=== PATIENT | male | born 1945 | race Caucasian/White ===

== ENCOUNTER → 2018-10-29 | Outpatient (CLI) | payer OTHER ==
[~2018-10-29] VITALS: Ht 175.3 cm; Wt 100.7 kg
[~2018-10-29] MED LIST: IBUPROFEN 800800 M1 PO
--- NOTE | ~2018-10-29 | HPC ---
[facility] [place] [address] PAIN MANAGEMENT CONSULTATION Name: OG REN Room #: REG AKASH Paige.#: [id number] Admission: 10/29/18 Attend Phys: Arvind De León MD Discharge: Date of : 49 Report #: [id number] THIS REPORT FOR: //name// CC: Giovani De León DATE OF SERVICE: 10/29/2018 CHIEF COMPLAINT: Low back pain with radicular symptoms into the right leg. The patient is a very pleasant 73-year-old gentleman I have seen today on the first visit at the recommendation of Dr. Giovani Rubin for radiculopathy. He has been experiencing lumbar radiculopathy for about the last 6 months. His pain is classic following an L4-L5 distribution. Beginning in the right leg, radiates above the knee into the front and then down into the front part of the leg. Most of this encompasses the L4, but part of the L5 dermatomal distribution. It is worse when he is sitting, especially driving. He gets some relief when he is standing or moving around. Years ago, he had similar problem, was treated with 3 epidural steroid injections and had years of relief. He is here today to consider the same. His only other pain complaint is a bump on his right heel, which is located at the Achilles tendon. He thinks that might have affected his gait and had something to do with his pain. MEDICATIONS: Ibuprofen. ALLERGIES: None. PAST MEDICAL HISTORY: Positive for skin cancer. I am not sure which type but he had a lobe of his right ear resected. PAST SURGICAL HISTORY: Hernia as a child, left shoulder rotator cuff about 10-12 years ago. SOCIAL HISTORY: He is retired . He worked in [employer] within the [employer] district in [place] for a number of years. He still works periodically during the week, cutting grass! He denies use of tobacco and alcohol. REVIEW OF SYSTEMS: Completed by the patient, is entirely negative. PHYSICAL EXAMINATION: GENERAL: He is a pleasant 73-year-old gentleman. VITAL SIGNS: His blood pressure is 146/90, heart rate 58, respirations 16. He [facility] [address] [place] [address] PAIN MANAGEMENT CONSULTATION Name: OG REN Room #: REG [facility]#: [id number] Admission: 10/29/18 Attend Phys: Arvind De León MD Discharge: Date of : 49 Report #: [id number] moves from sitting to standing position. His gait is moderately antalgic. CHEST: Clear to auscultation. CARDIAC: Rhythm is regular. ABDOMEN: Soft. MUSCULOSKELETAL: Examination of the spine reveals normal alignment. Good movement. Straight leg raising is positive, reproducing radicular symptoms on the right in the L4-L5 distribution. Sensation is intact. No focal weakness is noted. IMPRESSION: Lumbar radiculopathy, right L4-L5 distribution. RECOMMENDATION: Epidural steroid injection under fluoroscopic guidance. DESCRIPTION OF PROCEDURE: He was taken to the fluoroscopic suite and placed prone, skin prepped with ChloraPrep. Skin was anesthetized over the L4-L5 interspace to the right of midline and a 20-gauge Tuohy epidural needle advanced in first attempt in the epidural space with loss of resistance technique. There was no blood nor CSF aspirated. A 1 mL of Omnipaque was injected. Good spread of dye observed into the epidural space, was followed by 3 mL of 0.5% lidocaine mixed with 80 mg of triamcinolone. He tolerated the procedure well and was observed for 45 minutes and discharged. Followup visit planned as needed. By: [id number] Arvind De León MD /nt
[2018-10-29 08:52] VITALS: BP 146/90
--- NOTE | 2018-10-29 09:07 | NUR ---
Pain Clinic Assessment: 1. History of Osteoarthritis: NONE History of Rheumatoid Arthritis: NONE 2. Height: 5 ft. 9 in. 175.3 cm. Weight: 222.0 lb. oz. 100.699 kg. Patient's BMI: 32.8 3. Vital Signs: BP: 146/90 Pulse: 58 Resp: 16 Temp: 02 Sat: 100 ECG Mon: 4. Pain Intensity: 5 5. Fall Risk: Dizziness: N Needs help standing or walking: N Fallen in the last 3 months: N Fall risk comments: 6. Patient on Blood Thinner: None 7. History of Hypertension: N 8. Opioid Therapy greater than 6 weeks: N Opiate Contract Signed: 9. Risk Assessment Tool Provided: 10. Functional Assessment Tool: 11. Recreational Drug Use: Never Drug Type: Tobacco Use: Never Smoker Tobacco Type: Amount or Packs/day: How Many Years: Alcohol Use: No Frequency: Quant:
== END ==
LOC: PAIN 06:49
DX: M54.16 Radiculopathy, lumbar region (principal); G89.29 Other chronic pain; Z85.828 Personal history of other malignant neoplasm of skin; Z98.890 Other specified postprocedural states

== ENCOUNTER → 2018-12-03 | Outpatient (CLI) | payer OTHER ==
[~2018-12-03] VITALS: Ht 175.3 cm; Wt 100.8 kg
--- NOTE | ~2018-12-03 | HPC ---
[facility] [address] [place] [address] PAIN MANAGEMENT CONSULTATION Name: OG REN Room #: REG AKASH Paige.#: [id number] Admission: 12/03/18 Attend Phys: Arvind De León MD Discharge: Date of : 49 Report #: [id number] THIS REPORT FOR: //name// CC: Giovani De León DATE OF SERVICE: 12/03/2018 Followup visit for lumbar radiculopathy. The patient returns to pain clinic today and has had improvement following his first epidural injection. He was seen on 10/29/2018 for that treatment. In the past, he has received a series of 3 injections and received an extended relief. He was unhappy that he was not able to receive injections, one 1 week apart. We discussed at length with the current thoughts on epidural therapy and why we space injections, one month apart. He is here today hoping for another epidural injection. He scores his pain as a 5/10. Still improved over what he saw 1 month ago. PHYSICAL EXAMINATION: He is 5 feet 9 inches, 222 pounds, blood pressure 146/90, pulse 58, respirations 16. Moves independently from sitting to standing position and has mild antalgic gait. He has pain following the L4-L5 distribution. Pain is slightly different than before. It still, however, involves the posterior thigh radiating around into the posterior lateral calf. He has pain also into the right heel with an Achilles spur. IMPRESSION: Lumbar radiculopathy, right L4-L5 distribution. PROCEDURE RECOMMENDATION: Epidural steroid injection under fluoroscopic guidance. DESCRIPTION OF PROCEDURE: He was taken to fluoroscopic suite for treatment once again placed in the prone position. Skin prepped to the right of midline. A 20-gauge Tuohy epidural needle advanced first attempt into the epidural space with loss of resistance technique. There was no blood nor CSF aspirated. A 1 mL of Omnipaque was injected with excellent spread of dye observed into the epidural space followed by 3 mL of 0.5% lidocaine mixed with 10 mg of dexamethasone. He tolerated the procedure well. There were no complications. Pain was reduced to 0 in recovery room and followup visit was scheduled for him in 1 month for possible third injection. By: [id number] Arvind De León MD /nt
[2018-12-03 08:51] VITALS: BP 136/83
--- NOTE | 2018-12-03 08:59 | NUR ---
Pain Clinic Assessment: 1. History of Osteoarthritis: NONE History of Rheumatoid Arthritis: NONE 2. Height: 5 ft. 9 in. 175.3 cm. Weight: 222.2 lb. oz. 100.789 kg. Patient's BMI: 32.8 3. Vital Signs: BP: 136/83 Pulse: 62 Resp: 16 Temp: 02 Sat: 100 ECG Mon: 4. Pain Intensity: 5 5. Fall Risk: Dizziness: N Needs help standing or walking: N Fallen in the last 3 months: N Fall risk comments: 6. Patient on Blood Thinner: None 7. History of Hypertension: N 8. Opioid Therapy greater than 6 weeks: N Opiate Contract Signed: 9. Risk Assessment Tool Provided: 10. Functional Assessment Tool: 11. Recreational Drug Use: Never Drug Type: Tobacco Use: Never Smoker Tobacco Type: Amount or Packs/day: How Many Years: Alcohol Use: No Frequency: Quant:
== END | disposition home or self-care (01) ==
LOC: PAIN 06:46
DX: M54.16 Radiculopathy, lumbar region (principal); Z79.899 Other long term (current) drug therapy

== ENCOUNTER → 2019-02-11 | Outpatient (CLI) | payer OTHER ==
[~2019-02-11] VITALS: Ht 175.3 cm; Wt 103.4 kg
[2019-02-11 09:01] VITALS: BP 161/94
--- NOTE | 2019-02-11 09:10 | NUR ---
Pain Clinic Assessment: 1. History of Osteoarthritis: NONE History of Rheumatoid Arthritis: NONE 2. Height: 5 ft. 9 in. 175.3 cm. Weight: 228.0 lb. oz. 103.420 kg. Patient's BMI: 33.7 3. Vital Signs: BP: 161/94 Pulse: 70 Resp: 16 Temp: 02 Sat: 100 ECG Mon: 4. Pain Intensity: 6 5. Fall Risk: Dizziness: N Needs help standing or walking: N Fallen in the last 3 months: Y Fall risk comments: 6. Patient on Blood Thinner: None 7. History of Hypertension: N 8. Opioid Therapy greater than 6 weeks: N Opiate Contract Signed: 9. Risk Assessment Tool Provided: low-0 10. Functional Assessment Tool: 11. Recreational Drug Use: Never Drug Type: Tobacco Use: Never Smoker Tobacco Type: Amount or Packs/day: How Many Years: Alcohol Use: No Frequency: Quant:
== END ==
LOC: PAIN 06:52
DX: M54.16 Radiculopathy, lumbar region (principal); M25.572 Pain in left ankle and joints of left foot; Z79.899 Other long term (current) drug therapy